=== PATIENT | female | born 1980 ===

== ENCOUNTER → 2017-08-10 | Outpatient (CLI) | payer OTHER ==
[~2017-08-10] MED LIST: GLYB2.5 PO; IBUP800 PO; LABE100 PO; METF500 PO; Vitafol-Ob+Dha1 EACH PO
== END | disposition home or self-care (01) ==
LOC: LAB 14:02 → LAB SHORT 14:02
PROVIDERS: Nurse Practitioner Family
DX: Z01.419 Encounter for gynecological examination (general) (routine) without abnormal findings (principal); Z12.4 Encounter for screening for malignant neoplasm of cervix; Z11.51 Encounter for screening for human papillomavirus (HPV)
CPT/HCPCS: 87624; G0145

== ENCOUNTER → 2020-04-03 | Outpatient (CLI) | payer OTHER, SELFPAY ==
[~2020-04-03] MED LIST changes: +OXAYDO5 M1 PO; +VENL75ER PO; +VITAMIN D31000 UNI1 PO; +ZINC15 PO
== END | disposition home or self-care (01) ==
LOC: PLD 13:44 → LAB SHORT 13:44
DX: N93.9 Abnormal uterine and vaginal bleeding, unspecified (principal)
CPT/HCPCS: 88305

== ENCOUNTER 2020-04-23 06:07 | Day surgery (SDC) | payer OTHER, SELFPAY ==
[~2020-04-23] VITALS: Ht 162.6 cm; Wt 89.4 kg
[~2020-04-23 06:07] MED LIST changes: -OXAYDO5 M1 PO; -VENL75ER PO; -VITAMIN D31000 UNI1 PO; -ZINC15 PO
[2020-04-23] MEDS ORDERED: VENL75ER PO (06:36)
[2020-04-23] MEDS ORDERED: VITAMIN D31000 UNI1 PO (06:37)
[2020-04-23] MEDS ORDERED: ZINC15 PO (06:38)
--- NOTE | 2020-04-23 11:29 | NUR ---
ADMISSION PT ARRIVED TO UNIT AT APROX 1100 FROM PACU. POD 0 LAVH. LAP SITES WITH SS X'S 3 C/D/I, PT DENIES PAIN AT THIS TIME. VINNIE PAD IN PLACE WITH NO DRAINAGE PRESENT. DENIES SOB/CP, LUNGS CLEAR.
[2020-04-23] MEDS ORDERED: OXAYDO5 M1 PO (14:46)
[2020-04-23] MEDS ORDERED: IBUP800 PO (14:47)
--- NOTE | 2020-04-23 16:24 | NUR ---
Discharged Pt discharged home from unit at aprox 1500. pt given written and verbal discharge instructions and verbalized understanding of these instructions. pt voiding, tolerating regular diet and pain well managed with po pain medication. wheelchair to car.
== END 2020-04-23 15:02 | disposition home or self-care (01) ==
LOC: ORSCMMR 06:07 → SURS 11:22
PROVIDERS: Obstetrics & Gynecology
PROC: 0UT7FZZ Resection of Bilateral Fallopian Tubes, Via Natural or Artificial Opening With Percutaneous Endoscopic Assistance (ICD-10-PCS; principal; 2020-04-23 07:30)
PROC: 0UT9FZZ Resection of Uterus, Via Natural or Artificial Opening With Percutaneous Endoscopic Assistance (ICD-10-PCS; principal; 2020-04-23 07:30)
DX: N93.9 Abnormal uterine and vaginal bleeding, unspecified (principal); N84.0 Polyp of corpus uteri; N80.0 Endometriosis of uterus; N85.8 Other specified noninflammatory disorders of uterus; Z87.891 Personal history of nicotine dependence
CPT/HCPCS: 86850; 86900; 86901; 88307; A9270; J0171; J0690; J1100; J1885; J2250; J2405; J2704; J3010; J7120